=== PATIENT | male | born 1960 | race Caucasian/White ===

== ENCOUNTER 2017-01-06 13:14 | Inpatient (IN) | payer OTHER ==
[~2017-01-06] VITALS: Ht 152.4 cm; Wt 131.2 kg
[~2017-01-06 13:14] MED LIST: AMOXICILLIN/CL875 MG PO; ASPIRIN81 M1 PO; BENTYL20 MG PO; CARAFATE EQUIVAL1 GM PO; GABAPENTIN100 MG PO; HUMALOG100 MG/ML SC; IRON325 MG PO; LANTUS SOL100 UNITS/ SC; LISINOPRIL5 MG PO; LOTRIMIN30 GM TOP; METHADONE HCL5 MG PO; NEURONTIN300 MG PO; NOVOLOG PE100 UNITS/ SC; OXYCODONE H5 MG/5 ML PO; PLAVIX75 MG PO; TOPROL XL50 MG PO; TUSSIGON PO
--- NOTE | 2017-01-06 17:46 | ED NURSING NOTES ---
Clinical Report - Nurses [facility] [address] [place] [address] 01/06/2017 13:20 Patient: LETICIA EDWARDS TRIAGE Triage time 13:44 Jan 06 2017. Acuity: LEVEL 3. Chief Complaint: BACK PAIN (bedsore to left hip and testicle area). Alert. --13:54 Tania Greenwood R.N. 13:44 01/06/17. BP: 133/91. HR: 78. RR: 20. O2 saturation: 94%. Temp: 98.8 F. Pain level now: 06/26. --13:54 Tania Greenwood R.N. BRENTON COMA SCORE: Brenton Coma Scale: 14- eyes open spontaneously (4); best verbal response- disoriented (4); best motor response- obeys commands (6). --14:33 Tania Greenwood R.N. SEPSIS SCREEN: Sepsis Screen: negative. Infection suspected/documented. --14:34 Tania Greenwood R.N. Weight: 122.4 kg stated. Height/Length: 54 inches Estimated. BMI: 65.1. --13:54 Tania Greenwood R.N. Medications Dicyclomine HCl Oral 20 mg, 3x a day. Methadone HCl Oral 12.5mg 4x day. Methocarbamol Oral 750 mg, as needed. Metoprolol Tartrate Oral 50 mg, 3x day. Sucralfate Oral 1 gm, 4x a day. --13:46 Tania Greenwood R.N. Allergies Demerol. Morphine Sulfate. Sulfa Antibiotics. --13:46 Tania Greenwood R.N. History Arrived by EMS. Historian: automotive alignment specialist. This is a recurrent problem and onset was gradual. Symptoms still present. He has had weakness. Reports generalized muscle aches. ( confusion and hallucinations). No fever, cough or difficulty breathing. Treatment CHILD CARE SPECIALIST: None. PAST MEDICAL HX: Immunizations: up-to-date. SOCIAL HX: Heavy tobacco smoker (cigarette)- 1 pack per day. No alcohol use or drug use. No infectious disease exposure. SKIN INTEGRITY ASSESSMENT: Skin integrity risk assessment was performed. Risk factors identified include restricted mobility, non ambulatory, bedridden, complete positioning assistance, altered level of consciousness and incontinent. Pressure sore with damage down to muscle (Stage IV) noted on the left hip. SELF HARM ASSESSMENT: A self harm assessment was performed. The patient answered "no" to the question "Do you have thoughts of harming or killing yourself?". Bedside precautions. NUTRITIONAL RISK ASSESSMENT: The nutritional risk assessment revealed no deficiencies. LEARNING NEEDS ASSESSMENT: The learning needs assessment revealed no barriers. ABUSE ASSESSMENT: Abuse assessment: The patient was asked "Do you feel safe in your home?". FALL RISK ASSESSMENT: Fall risk assessment completed. Risk factors identified include severe pain and patient impairment of mobility. Fall interventions initiated. Call light in reach of patient. FUNCTIONAL ASSESSMENT: Functional assessment performed: requires total care with the activities of daily living; uses wheelchair and is bed-ridden- this mobility impairment is an ongoing problem. --13:54 Tania Greenwood R.N. PROBLEMS: CVA - Cerebrovascular Accident. TIA - Transient Ischemic Attack. Myocardial Infarction. Gangreen Forniers. Gastroesophageal Reflux Disease. Peripheral Neuropathy. Diabetes Mellitus. Pressure Ulcer. UTI - Urinary Tract Infection. Dysuria. Hypertension. Immunizations. Pneumonia. --13:47 Tania Greenwood R.N. ADDITIONAL SURGERIES: Amputation Above Knee. Cardiac stents. Cholecystectomy. Knee Surgery. Scrotal debridement. Shoulder Surgery. --13:47 Tania Greenwood R.N. Interventions ID and allergy band on patient. To room. --13:54 Tania Greenwood R.N. Protocol initiated. --14:33 Tania Greenwood R.N. PHYSICAL ASSESSMENT GENERAL / NEURO / PSYCH: Alert. Appears in pain. The patient is disoriented to time. HEENT: ( muc mem dry). RESPIRATORY: Respirations not labored. GI / : Abdominal tenderness. SKIN: Skin is warm. Skin breakdown noted on buttock and hip; pressure sore with damage down to muscle (Stage IV) noted on left buttock and left hip. --13:58 Tania Greenwood R.N. NURSING PROGRESS NOTES Patient gowned. Two patient identifiers checked. Call light placed in reach. Side rails up x 2. Bed placed in lowest position. Brakes of bed on. Patient ready for evaluation- chart flagged. --13:58 Tania Greenwood R.N. Finger stick glucose: 214 mg/dL; ordered; performed by tech; result shown to the RN. --14:20 Eric, Minerva 14:20 01/06/2017 IV NS : initial bolus none -, then 1000 mL/hr for X1 (NOW) was refused by patient because of wants a PICC line. Tania Greenwood --14:20 Tania Greenwood R.N. 14:20 01/06/17. ( pt refused IV start states that he wants a PICC line. Called lab and they will come draw labs.). --14:28 Tania Greenwood R.N. 14:45 01/06/2017 Site #1 started via IV in the right hand with an 20g angiocath; one attempt. Blood drawn: cultures x1. Saline lock flushed. --14:50 Tania Greenwood R.N. 14:50 01/06/2017 Site #1 removed. Catheter intact. Pressure dressing applied (infiltrated). --14:50 Tania Greenwood R.N. Patient identifiers checked. Call light placed in reach. Side rails up x 2. Bed placed in lowest position. Brakes of bed on. --14:51 Tania Greenwood R.N. ( patient states that he needs a break and will call when he is ready for IV.). --14:51 Tania Greenwood R.N. ( called respiratory for PICC). --14:55 Tania Greenwood R.N. 15:37 01/06/2017 Site #2 started via IV using a PICC line in the right with an 20g angiocath (inserted by RT). --15:42 Tania Greenwood R.N. 15:43 01/06/2017 Started bag #1 1000 mL IV Fluids IV NS (Saline); at 1000 mL/hr over 1 hour(s) via site #2. Allergies verified and confirmed 5 rights. IV patency established. IV site checked: no pain, redness, or swelling. IV flushed thoroughly pre- and post-medication administration. --15:43 Tania Greenwood R.N. Urinary catheter. (plugged pts cath to obtain urine sample). --15:44 Tania Greenwood R.N. 15:58 01/06/2017 Dilaudid (HYDROmorphone HCl PF) IVP 1 mg given over 2 minute(s) via site #2. --16:03 Tania Greenwood R.N. 16:01 01/06/2017 Zofran (Ondansetron HCl) IVP 4 mg given over 2 minute(s) via site #2. Allergies verified and confirmed 5 rights. IV patency established. IV site checked: no pain, redness, or swelling. IV flushed thoroughly pre- and post-medication administration. --16:04 Tania Greenwood R.N. Patient ID band checked for patient name and birthdate: patient confirmed urine collected with return of ricardo-colored cloudy urine, sediment noted; odor is foul-smelling; sample sent to lab for urinalysis and culture. Specimen labeled in the presence of the patient. --16:05 Tania Greenwood R.N. 16:35 01/06/2017 Acetaminophen (APAP) PO 1000 mg given. Allergies verified and confirmed 5 rights. --16:35 Tania Greenwood R.N. 16:37 01/06/2017 Dilaudid IVP Response: symptoms are the same. The patient feels the same. --16:37 Tania Greenwood R.N. 16:38 01/06/2017 Started bag #1 1000 mL IV Fluids IV NS (Saline); at 1000 mL/hr over 1 hour(s) via site #2 via IV pump. Allergies verified and confirmed 5 rights. IV patency established. IV site checked: no pain, redness, or swelling. IV flushed thoroughly pre- and post-medication administration. --16:38 Tania Greenwood R.N. 16:38 01/06/2017 IV Fluids IV NS Discontinued: bag #1 infused. Total amount infused: 1000 mL. IV patency established. IV site checked: no pain, redness, or swelling. IV flushed thoroughly. --16:38 Tania Greenwood R.N. 16:29 01/06/17. BP: 104/47. HR: 79. RR: 12. O2 saturation: 80%. Temp: 101.5 F. Pain level now 06/26. --16:39 Tania Greenwood R.N. 16:29 16:40 Jan 06 2017 Jan 06 2017. ED physician notified. ( notified MD of change in vital signs.). --16:40 Tania Greenwood R.N. 16:41 01/06/17. BP: 120/57. HR: 102. O2 saturation: 98%. --16:42 Tania Greenwood R.N. ( H&P form given to patients caregiver to help fill out.). --17:29 Minerva Reyes 17:30 01/06/17. BP: 120/53. HR: 97. RR: 16. O2 saturation: 98%. Temp: 100.5 F. Pain level now: 05/26. --17:31 Tania Greenwood R.N. 17:07 01/06/2017 Started 4.5 gm of Zosyn (Piperacillin Sod-Tazobactam So) IVPB in bag #1 200 mL; at 200 mL/hr over 1 hour(s) via site #2 via IV pump. Allergies verified and confirmed 5 rights. IV patency established. IV site checked: no pain, redness, or swelling. IV flushed thoroughly pre- and post-medication administration. --17:32 Tania Greenwood R.N. 17:40 01/06/2017 IV Fluids IV NS Discontinued: bag #2 infused. Total amount infused: 1000 mL. --17:40 Tania Greenwood R.N. 17:43 01/06/2017 Started bag #1 1000 mL IV Fluids IV NS (Saline); at 1000 mL/hr over 1 hour(s) via site #2 via IV pump. Allergies verified and confirmed 5 rights. IV patency established. IV site checked: no pain, redness, or swelling. IV flushed thoroughly pre- and post-medication administration. --17:43 Tania Greenwood R.N. 18:03 01/06/2017 Potassium Chloride (Potassium Chloride ER) PO 40 meq given. Allergies verified and confirmed 5 rights. --18:03 Tania Greenwood R.N. 17:58 01/06/17. BP: 113/64. HR: 94. RR: 16. O2 saturation: 96% on nasal cannula at 2 liters/minute. --18:06 Tania Greenwood R.N. Care transferred and report given ([employer] on floor). --18:07 Tania Greenwood R.N. DISPOSITION / DISCHARGE Departure time: 18:Jan 06 2017. Admitted to Acute Care (18:Jan 06 2017). Report was given to a nurse via a phone call. Report included patient's care, treatment, medications, reviewed medication reconcilliation, and condition (including any recent changes or anticipated changes). All questions were answered. Report was acknowledged. Patient's personal items include: glasses; items were transported with the patient. --18:21 Tania Greenwood R.N. Locked/Released at 01/06/2017 18:22 by Tania Greenwood R.N.
--- NOTE | 2017-01-06 17:46 | ED ORDER SUMMARY ---
..... Patient: LETICIA EDWARDS OrderSheet [facility] VisitID: [id number] [place] [address] 56y, M Registration Date/Time: 01/06/2017 ORDER SHEET Weight: 122.4 kg (stated) Allergies: Demerol, Morphine Sulfate, Sulfa Antibiotics GENERAL ORDERS: Blood Culture (No) (N/A) Urgent (13:51 01/06/2017 Emerita Chance) (Ack 13:54 Thuy) (15:17 KKnebel R.N.) CBC w Diff Urgent (13:52 01/06/2017 Emerita Chance) (Ack 13:53 Thuy) (15:17 KKnebel R.N.) CMP Urgent (13:52 01/06/2017 Emerita Chance) (Ack 13:53 Thuy) (15:17 KKnebel R.N.) UA-Culture if indicated Urgent (13:52 01/06/2017 Emerita Chance) (Ack 13:53 Thuy) (16:04 KKnebel R.N.) CPK Urgent (13:52 01/06/2017 Emerita Chance) (Ack 13:54 Thuy) (15:17 KKnebel R.N.) Acetone, Serum Urgent (13:52 01/06/2017 Emerita Chance) (Ack 13:54 Thuy) (15:17 KKnebel R.N.) Lactic Acid for Sepsis Protocol Urgent (13:52 01/06/2017 Emerita Chance) (Ack 13:54 Thuy) (15:17 KKnebel R.N.) PCT (Procalcitonin) Urgent (13:52 01/06/2017 Emerita Chance) (Ack 13:54 Thuy) (15:17 KKnebel R.N.) MEDICATION ORDERS: Acetaminophen PO 1,000 mg (NOW) (16:33 01/06/2017 Emerita Chance) (16:35 KKnebel R.N.) Potassium Chloride PO 40 meq (NOW) (16:36 01/06/2017 Emerita Chance) (Ack 16:46 KKnebel R.N.) (18:03 Dom R.N.) IV FLUIDS: IV NS : initial bolus none -, then 1000 mL/hr for X1 (NOW) (13:51 01/06/2017 Emerita Chance) (14:20 Dom R.N.) Dilaudid IV 1 mg (HIGH ALERT MEDICATION, NOW) (15:47 01/06/2017 Emerita Chance) (16:03 Dom R.N.) Zofran IV 4 mg (NOW) (15:47 01/06/2017 Emerita Chance) (16:04 Dom R.N.) IV NS : initial bolus 1000 mL (1000 mL/hr), then 1000 mL/hr for X1 (NOW) (16:31 01/06/2017 Emerita Chance) (16:38 Dom R.N.) Vancomycin IV 1.5 gm/500 mL (NOW) (16:34 01/06/2017 Emerita Chance) (Ack 16:46 Dom R.N.) Zosyn IV 4.5 gm/100mL (NOW) (16:34 01/06/2017 Emerita Chance) (Ack 16:46 KOREYnecait R.N.) (17:32 Dom R.N.) ORDER SHEET NOTES: [Electronically signed by Tania Greenwood R.N. (18:22 01/06/2017)] [Electronically signed by Mihir Hill Dr. (21:46 01/06/2017)] [Electronically locked/signed by Tania Greenwood R.N. (18:22 01/06/2017)]
--- NOTE | 2017-01-06 17:46 | ED ORDER SUMMARY ---
..... Patient: LETICIA EDWARDS OrderSheet [facility] VisitID: [id number] [place] [address] 56y, M Registration Date/Time: 01/06/2017 ORDER SHEET Weight: 122.4 kg (stated) Allergies: Demerol, Morphine Sulfate, Sulfa Antibiotics GENERAL ORDERS: Blood Culture (No) (N/A) Urgent (13:51 01/06/2017 Emerita Chance) (Ack 13:54 Thuy) (15:17 KKnebel R.N.) CBC w Diff Urgent (13:52 01/06/2017 Emerita Chance) (Ack 13:53 Thuy) (15:17 KKnebel R.N.) CMP Urgent (13:52 01/06/2017 Emerita Chance) (Ack 13:53 Thuy) (15:17 KKnebel R.N.) UA-Culture if indicated Urgent (13:52 01/06/2017 Emerita Chance) (Ack 13:53 Thuy) (16:04 KKnebel R.N.) CPK Urgent (13:52 01/06/2017 Emerita Chance) (Ack 13:54 Thuy) (15:17 KKnebel R.N.) Acetone, Serum Urgent (13:52 01/06/2017 Emerita Chance) (Ack 13:54 Thuy) (15:17 KKnebel R.N.) Lactic Acid for Sepsis Protocol Urgent (13:52 01/06/2017 Emerita Chance) (Ack 13:54 Thuy) (15:17 KKnebel R.N.) PCT (Procalcitonin) Urgent (13:52 01/06/2017 Emerita Chance) (Ack 13:54 Thuy) (15:17 KKnebel R.N.) MEDICATION ORDERS: Acetaminophen PO 1,000 mg (NOW) (16:33 01/06/2017 Emerita Chance) (16:35 KKnebel R.N.) Potassium Chloride PO 40 meq (NOW) (16:36 01/06/2017 Emerita Chance) (Ack 16:46 KKnebel R.N.) (18:03 Dom R.N.) IV FLUIDS: IV NS : initial bolus none -, then 1000 mL/hr for X1 (NOW) (13:51 01/06/2017 Emerita Chance) (14:20 Dom R.N.) Dilaudid IV 1 mg (HIGH ALERT MEDICATION, NOW) (15:47 01/06/2017 Emerita Chance) (16:03 Dom R.N.) Zofran IV 4 mg (NOW) (15:47 01/06/2017 Emerita Chance) (16:04 Dom R.N.) IV NS : initial bolus 1000 mL (1000 mL/hr), then 1000 mL/hr for X1 (NOW) (16:31 01/06/2017 Emerita Chance) (16:38 Dom R.N.) Vancomycin IV 1.5 gm/500 mL (NOW) (16:34 01/06/2017 Emerita Chance) (Ack 16:46 Dom R.N.) Zosyn IV 4.5 gm/100mL (NOW) (16:34 01/06/2017 Emerita Chance) (Ack 16:46 KOREYnecait R.N.) (17:32 Dom R.N.) ORDER SHEET NOTES: [Electronically signed by Tania Greenwood R.N. (18:22 01/06/2017)] [Electronically signed by Mihir Hill Dr. (21:46 01/06/2017)] [Electronically locked/signed by Tania Greenwood R.N. (18:22 01/06/2017)]
--- NOTE | 2017-01-06 17:46 | ED CLINICAL REPORT ---
Clinical Report - Physicians/Mid Levels [facility] [address] [place] [address] 01/06/2017 13:20 Patient: LETICIA EDWARDS Time Seen: 13:29; initial patient contact. Arrived- By ambulance. Historian- patient. HISTORY OF PRESENT ILLNESS Chief Complaint: LESION. This started several weeks ago and is still present (worse). It was gradual in onset. It is described as painful. It has been located on the left buttock. A cause has been identified (sacral stage 4 decubitus ulcers). No recent medication. (Has been in his wheelchair for 7 straight days w/out moving.). Similar symptoms previously: None. Recent medical care: Not recently seen/assessed. REVIEW OF SYSTEMS No fever, chills, difficulty breathing, abdominal pain or diarrhea. No difficulty with urination or vomiting. He has had nausea, fatigue, back pain and altered mental status. All systems otherwise negative, except as recorded above. PAST HISTORY CVA - Cerebrovascular Accident. TIA - Transient Ischemic Attack. Myocardial Infarction. Gangreen Forniers. Gastroesophageal Reflux Disease. Peripheral Neuropathy. Diabetes Mellitus. Pressure Ulcer. Hypertension. Surgeries: Cardiac stents. Cholecystectomy. Knee Surgery. Scrotal debridement. Shoulder Surgery. SOCIAL HISTORY Smoker - current status unknown. Alcohol use. Patient is a recovering alcoholic. No drug use. ADDITIONAL NOTES The nursing notes have been reviewed. PHYSICAL EXAM Vital Signs: 01/06/2017 13:44 BP: 133/91. HR: 78. RR: 20. O2 saturation: 94%. Temp: 98.8 F. Pain level now: 9/10. Have been reviewed. Hypertensive. Heart rate normal. Respiratory rate normal. Temperature normal. Oxygen saturation low. Appearance: Alert. Oriented X3. Appears to be in pain. Patient in mild distress. ENT: Dry mucous membranes present. Neck: Neck supple. CVS: Normal heart rate and rhythm. Heart sounds normal. Respiratory: No respiratory distress. Breath sounds normal. Abdomen: Nontender. No organomegaly. Skin: Deep sacral pressure ulcer with redness, necrosis and bone visible. Extremities: Extremity tenderness. Bilateral above the knee amputations. (bilateral AKA's). Neuro: Oriented X 3. LABS, X-RAYS, AND EKG Laboratory Tests: UA-Culture if indicated: (JAYLON: 01/06/2017 15:55) ( [facility] [place] 16:22) Final results Test Result Flag Units (Reference) URINE COLOR YELLOW URINE APPEARANCE CLOUDY URINE GLUCOSE TRACE (NEGATIVE) URINE BILIRUBIN NEGATIVE (NEGATIVE) URINE KETONE NEGATIVE (NEGATIVE) URINE SPECIFIC GRAVITY 1.020 (1.010-1.030) URINE PH 7.5 (5.0-8.0) URINE PROTEIN 3+ (NEGATIVE) URINE UROBILINOGEN 1.0 EU/dL (0.2-1.0) URINE NITRITE POSITIVE (NEGATIVE) URINE BLOOD 3+ (NEGATIVE) URINE LEUK ESTERASE POSITIVE (NEGATIVE) URINE RBC 3-5 rbc/hpf (0-1) TRIPLE PHOSPHATE CRYSTALS 5-15/HPF URINE WBC 5-10 wbc/hpf (0-1) URINE EPITHELIAL CELLS NONE SEEN EPI/hpf (0-5) URINE BACTERIA MANY (4+) (NONE SEEN) URINE COMMENT CULTURE INDICATED URINE CULTURES ARE SET-UP BASED ON THE FOLLOWING CRITERIA:POSITIVE NITRITEPOSITIVE LEUKOCYTE ESTERASEGREATER THAN 10 WHITE BLOOD CELLSMODERATE (2+) OR GREATER BACTERIA CBC w Diff: (JAYLON: 01/06/2017 14:30) ( [facility] 01/06/2017 15:02) Final results Test Result Flag Units (Reference) WHITE BLOOD COUNT 13.9 H K/uL (4.5-11.5) RED BLOOD COUNT 4.00 L M/uL (4.50-5.90) HEMOGLOBIN 9.9 L gm/dL (13.5-17.5) HEMATOCRIT 32.1 L % (41.0-53.0) MEAN CELL VOLUME 80 fL (80-100) MEAN CORPUSCULAR HGB 25 L pg (26-34) MEAN CORPUSCULAR HGB CONC 31 g/dL (31-37) RED CELL DISTRIBUTION WIDTH 15.6 H % (11.6-14.8) PLATELET COUNT 362 K/uL (150-400) LYMPH % 12.2 L % (25-40) MONO % 4.9 % (3-14) GRANULOCYTE % 82.9 [id number]: (JAYLON: 01/06/2017 14:30) ( MsgRcvd 01/06/2017 15:41) Final results Test Result Flag Units (Reference) PROCALCITONIN <0.5 ng/mL (0-0.5) PCT Concentration: Interpretation : Risk/option for action PCT <=0.5 ng/mL : Systemic : Low risk forinfection(sepsis): progression to severeis not likely. : systemic infection.Local bacterial : CAUTION-PCT levelsinfection is : below 0.5 ng/mL do notpossible. : exclude an infection,because localizedinfections (withoutsystemic signs) may beassociated with suchlow levels. If PCT ismeasured very earlyafter a bacterialchallenge (usually <6hours), these valuesmay still be low. Inthis case PCT shouldbe re-assessed 6-24hours later. PCT >0.5 and : Systemic infection: Moderate risk for<= 2 ng/mL : (sepsis) is : progression to severepossible, but : systemic infection.other conditions : The patient should beare known to : closely monitoredelevate PCT. : both clinically andby re-assessing PCTwithin 6-24 hours. PCT > 2 ng/mL : Systemic infection: High risk for(sepsis) is likely: progression to severeunless other : systemic infection.causes are known. : PCT >= 10 ng/mL : Important systemic: High likelihood ofinflammatory : severe sepsis orresponse, almost : septic shock.exclusively due to:severe bacterial :sepsis or septic :shock. : CMP: (JAYLON: 01/06/2017 14:30) ( MsgRcvd 01/06/2017 15:45) Final results Test Result Flag Units (Reference) GLUCOSE 192 H mg/dL (70-110) BUN 16 mg/dL (7-18) CREATININE 1.2 mg/dL (0.6-1.3) Estimated GFR >60 mL/min Estimated GFR- >60 mL/min Note: Persistent reduction over 3 months in eGFR<60 mL/min/1.73 m2 defines CKD. Patients with eGFR values>=60 mL/min/1.73 m2 may also have CKD if evidence ofpersistent proteinuria. Additional information may be foundat www.kidney.org. SODIUM 142 mmol/L (136-145) POTASSIUM 3.1 L mmol/L (3.5-5.1) CHLORIDE 102 mmol/L (98-107) CARBON DIOXIDE 31 mmol/L (21-32) CALCIUM 7.9 L mg/dL (8.5-10.1) TOTAL PROTEIN 7.0 g/dL (6.4-8.2) ALBUMIN 1.2 L g/dL (3.3-5.0) BILIRUBIN, TOTAL 0.3 mg/dL (0.0-1.0) ALKALINE PHOSPHATASE 157 H U/L (46-116) AST (SGOT) 18 U/L (15-37) ALT (SGPT) 17 U/L (12-78) CPK 57 U/L (24-260) ACETONE, SERUM QUALITATIVE NEGATIVE (NEGATIVE) LACTIC ACID SEPSIS PROTOCOL 2.1 H mmol/L (0.4-2.0) . PROGRESS AND PROCEDURES Discussed case with patient's primary care provider, (call placed 16:53 Dr. Hays). Disposition: Admitted to Acute Care. Stage 4 pressure ulcer present prior to admission. Admit decision based on need for observation, IV antibiotics and medications and stabilization of condition. CLINICAL IMPRESSION Acute urinary tract infection with cystitis associated with indwelling catheter. Sepsis. No shock or acute organ dysfunction. Stage 4 pressure ulcer with exposed muscle, tendon and bone on the sacral area. Cellulitis present. Hypokalemia. INSTRUCTIONS Follow-up: Blood pressure screening was not performed during this visit because the patient has an active diagnosis of hypertension. (Electronically signed by Mihir Hill Dr. 01/06/2017 21:46)
[2017-01-06 19:22] VITALS: BP 87/47
--- NOTE | 2017-01-06 21:46 | ED MAR SUMMARY ---
..... Medication Administration Record [facility] [address] [place] [address] Patient: LETICIA EDWARDS Visit ID: [id number] 56y, M Weight: 122.4 kg Height/Length: 54 in BMI: 65.1 ALLERGIES: Demerol, Morphine Sulfate, Sulfa Antibiotics Start 15:43 01/06/2017 Tania Greenwood R.N., Stop 16:38 01/06/2017 Tania Greenwood R.N. Medication Administered: IV NS (SALINE), Dose: IV Fluids over 1 hour(s), Rate: 1000 mL/hr, Dispensed: 1000 mL bag, Site: #2 right PICC. Medication Ordered: IV NS : initial bolus none -, then 1000 mL/hr for X1 (NOW). Given 15:58 01/06/2017 Tania Greenwood R.N. Medication Administered: DILAUDID [IVP] (HYDROMORPHONE HCL PF), Dose: 1 mg IVP over 2 minute(s), Site: #2 right PICC. Medication Ordered: Dilaudid IV 1 mg (HIGH ALERT MEDICATION, NOW). Given 16:01 01/06/2017 Tania Greenwood R.N. Medication Administered: ZOFRAN [IVP] (ONDANSETRON HCL), Dose: 4 mg IVP over 2 minute(s), Site: #2 right PICC. Medication Ordered: Zofran IV 4 mg (NOW). Given 16:35 01/06/2017 Tania Greenwood R.N. Medication Administered: ACETAMINOPHEN [PO] (APAP), Dose: 1000 mg PO. Medication Ordered: Acetaminophen PO 1,000 mg (NOW). Start 16:38 01/06/2017 Tania Gerenwood R.N., Stop 17:40 01/06/2017 Tania Greenwood R.N. Medication Administered: IV NS (SALINE), Dose: IV Fluids over 1 hour(s), Rate: 1000 mL/hr, Dispensed: 1000 mL bag, Site: #2 right PICC. Medication Ordered: IV NS : initial bolus 1000 mL (1000 mL/hr), then 1000 mL/hr for X1 (NOW). Start 17:07 01/06/2017 Tania Greenwood R.N. Medication Administered: ZOSYN [IVPB] (PIPERACILLIN SOD-TAZOBACTAM SO), Dose: 4.5 gm IVPB over 1 hour(s), Rate: 200 mL/hr, Dispensed: 200 mL bag, Site: #2 right PICC. Medication Ordered: Zosyn IV 4.5 gm/100mL (NOW). Start 17:43 01/06/2017 Tania Greenwood R.N. Medication Administered: IV NS (SALINE), Dose: IV Fluids over 1 hour(s), Rate: 1000 mL/hr, Dispensed: 1000 mL bag, Site: #2 right PICC. Medication Ordered: IV NS : initial bolus 1000 mL (1000 mL/hr), then 1000 mL/hr for X1 (NOW). Given 18:03 01/06/2017 Tania Greenwood R.N. Medication Administered: POTASSIUM CHLORIDE [PO] (POTASSIUM CHLORIDE ER), Dose: 40 meq PO. Medication Ordered: Potassium Chloride PO 40 meq (NOW).
--- NOTE | 2017-01-06 21:46 | ED MED RECONCILIATION SUMMARY ---
Patient: LETICIA EDWARDS Medication Reconciliation Report [facility] VisitID: [id number] [address] [place] [address] 56y, M Registration Date/Time: 01/06/2017 Weight: 122.4 kg Height/Length: 54 in. BMI: 65.1 ALLERGIES: Demerol, Morphine Sulfate, Sulfa Antibiotics The patient's Home Medications are listed below: THE FOLLOWING MEDICATIONS NEED TO BE RECONCILED: Dicyclomine HCl Oral 20 mg, 3x a day Methadone HCl Oral 12.5mg 4x day Methocarbamol Oral 750 mg Metoprolol Tartrate Oral 50 mg, 3x day Sucralfate Oral 1 gm, 4x a day The source(s) of the original Home Medication information: Not obtained. The following Medications were given to the patient in the Emergency Department: IV NS IV Fluids bolus 0, then 1000 mL/hr, administered: 01/06/2017 3:43:00 PM Dilaudid [IVP] IVP 1 mg, administered: 01/06/2017 3:58:00 PM Zofran [IVP] IVP 4 mg, administered: 01/06/2017 4:01:00 PM Acetaminophen [PO] PO 1000 mg, administered: 01/06/2017 4:35:00 PM IV NS IV Fluids bolus 0, then 1000 mL/hr, administered: 01/06/2017 4:38:00 PM Zosyn [IVPB] IVPB bolus 0, then 4.5 gm 200 mL/hr, administered: 01/06/2017 5:07:00 PM IV NS IV Fluids bolus 0, then 1000 mL/hr, administered: 01/06/2017 5:43:00 PM Potassium Chloride [PO] PO 40 meq, administered: 01/06/2017 6:03:00 PM The following Medications were prescribed to the patient: None.
--- NOTE | 2017-01-06 21:46 | ED DISCHARGE INSTRUCTIONS ---
Patient: LETICIA EDWARDS General Instructions [facility] VisitID: [id number] [address] [place] [address] 56y, M Registration Date/Time: 01/06/2017 Acute urinary tract infection with cystitis associated with indwelling catheter. Sepsis. No shock or acute organ dysfunction. Stage 4 pressure ulcer with exposed muscle, tendon and bone on the sacral area. Cellulitis present. Hypokalemia. INSTRUCTIONS Follow-up: Blood pressure screening was not performed during this visit because the patient has an active diagnosis of hypertension. (Electronically signed by Mihir Hill Dr. 01/06/2017 21:46)
--- NOTE | 2017-01-06 21:46 | ED MED RECONCILIATION SUMMARY ---
Patient: LETICIA EDWARDS Medication Reconciliation Report [facility] VisitID: [id number] [address] [place] [address] 56y, M Registration Date/Time: 01/06/2017 Weight: 122.4 kg Height/Length: 54 in. BMI: 65.1 ALLERGIES: Demerol, Morphine Sulfate, Sulfa Antibiotics The patient's Home Medications are listed below: THE FOLLOWING MEDICATIONS NEED TO BE RECONCILED: Dicyclomine HCl Oral 20 mg, 3x a day Methadone HCl Oral 12.5mg 4x day Methocarbamol Oral 750 mg Metoprolol Tartrate Oral 50 mg, 3x day Sucralfate Oral 1 gm, 4x a day The source(s) of the original Home Medication information: Not obtained. The following Medications were given to the patient in the Emergency Department: IV NS IV Fluids bolus 0, then 1000 mL/hr, administered: 01/06/2017 3:43:00 PM Dilaudid [IVP] IVP 1 mg, administered: 01/06/2017 3:58:00 PM Zofran [IVP] IVP 4 mg, administered: 01/06/2017 4:01:00 PM Acetaminophen [PO] PO 1000 mg, administered: 01/06/2017 4:35:00 PM IV NS IV Fluids bolus 0, then 1000 mL/hr, administered: 01/06/2017 4:38:00 PM Zosyn [IVPB] IVPB bolus 0, then 4.5 gm 200 mL/hr, administered: 01/06/2017 5:07:00 PM IV NS IV Fluids bolus 0, then 1000 mL/hr, administered: 01/06/2017 5:43:00 PM Potassium Chloride [PO] PO 40 meq, administered: 01/06/2017 6:03:00 PM The following Medications were prescribed to the patient: None.
--- NOTE | 2017-01-06 21:46 | ED MAR SUMMARY ---
..... Medication Administration Record [facility] [address] [place] [address] Patient: LETICIA EDWARDS Visit ID: [id number] 56y, M Weight: 122.4 kg Height/Length: 54 in BMI: 65.1 ALLERGIES: Demerol, Morphine Sulfate, Sulfa Antibiotics Start 15:43 01/06/2017 Tania Greenwood R.N., Stop 16:38 01/06/2017 Tania Greenwood R.N. Medication Administered: IV NS (SALINE), Dose: IV Fluids over 1 hour(s), Rate: 1000 mL/hr, Dispensed: 1000 mL bag, Site: #2 right PICC. Medication Ordered: IV NS : initial bolus none -, then 1000 mL/hr for X1 (NOW). Given 15:58 01/06/2017 Tania Greenwood R.N. Medication Administered: DILAUDID [IVP] (HYDROMORPHONE HCL PF), Dose: 1 mg IVP over 2 minute(s), Site: #2 right PICC. Medication Ordered: Dilaudid IV 1 mg (HIGH ALERT MEDICATION, NOW). Given 16:01 01/06/2017 Tania Greenwood R.N. Medication Administered: ZOFRAN [IVP] (ONDANSETRON HCL), Dose: 4 mg IVP over 2 minute(s), Site: #2 right PICC. Medication Ordered: Zofran IV 4 mg (NOW). Given 16:35 01/06/2017 Tania Greenwood R.N. Medication Administered: ACETAMINOPHEN [PO] (APAP), Dose: 1000 mg PO. Medication Ordered: Acetaminophen PO 1,000 mg (NOW). Start 16:38 01/06/2017 Tania Greenwood R.N., Stop 17:40 01/06/2017 Tania Greenwood R.N. Medication Administered: IV NS (SALINE), Dose: IV Fluids over 1 hour(s), Rate: 1000 mL/hr, Dispensed: 1000 mL bag, Site: #2 right PICC. Medication Ordered: IV NS : initial bolus 1000 mL (1000 mL/hr), then 1000 mL/hr for X1 (NOW). Start 17:07 01/06/2017 Tania Greenwood R.N. Medication Administered: ZOSYN [IVPB] (PIPERACILLIN SOD-TAZOBACTAM SO), Dose: 4.5 gm IVPB over 1 hour(s), Rate: 200 mL/hr, Dispensed: 200 mL bag, Site: #2 right PICC. Medication Ordered: Zosyn IV 4.5 gm/100mL (NOW). Start 17:43 01/06/2017 Tania Greenwood R.N. Medication Administered: IV NS (SALINE), Dose: IV Fluids over 1 hour(s), Rate: 1000 mL/hr, Dispensed: 1000 mL bag, Site: #2 right PICC. Medication Ordered: IV NS : initial bolus 1000 mL (1000 mL/hr), then 1000 mL/hr for X1 (NOW). Given 18:03 01/06/2017 Tania Greenwood R.N. Medication Administered: POTASSIUM CHLORIDE [PO] (POTASSIUM CHLORIDE ER), Dose: 40 meq PO. Medication Ordered: Potassium Chloride PO 40 meq (NOW).
--- NOTE | 2017-01-06 21:46 | ED DISCHARGE INSTRUCTIONS ---
Patient: LETICIA EDWARDS General Instructions [facility] VisitID: [id number] [address] [place] [address] 56y, M Registration Date/Time: 01/06/2017 Acute urinary tract infection with cystitis associated with indwelling catheter. Sepsis. No shock or acute organ dysfunction. Stage 4 pressure ulcer with exposed muscle, tendon and bone on the sacral area. Cellulitis present. Hypokalemia. INSTRUCTIONS Follow-up: Blood pressure screening was not performed during this visit because the patient has an active diagnosis of hypertension. (Electronically signed by Mihir Hill Dr. 01/06/2017 21:46)
[2017-01-06 23:19] VITALS: BP 84/48
[2017-01-06] MEDS ORDERED: METHADONE HCL5 MG PO (23:26)
[2017-01-06] MEDS ORDERED: LOPRESSOR50 MG PO (23:26)
[2017-01-06] MEDS ORDERED: OXAYDO5 MG PO (23:27)
[2017-01-06] MEDS ORDERED: MIRALAX EQUIVAL17 GM PO (23:28)
[2017-01-07] VITALS (10 sets, daily range): BP systolic 88–174; BP diastolic 47–96
--- NOTE | 2017-01-07 03:11 | HISTORY AND PHYSICAL ---
ADMITTED: 01/06/2017 CHIEF COMPLAINT: 1. Confusion, weakness, and decreased responsiveness with abdominal pain, left hip and buttock pain HISTORY OF PRESENT ILLNESS: The patient is a 56-year-old white male, who has had longstanding problems with diabetes and diabetic neuropathy and vascular disease , who also has been very noncompliant with his own care at home. He has recently had a left above-knee amputation in 09/2016 and had had a right above-knee amputation about a year and a half earlier. He was quite noncompliant following his discharge from the hospital and developed a large deep ulcer on the left hip area. He was not prompt about getting into the [facility]ound [facility] Clinic at [facility] to have this treated. He eventually was admitted to [facility] and had an extensive debridement done. Following this, he had a wound VAC placed and was supposed to follow up there. He returned home and basically has been in his power wheelchair since and has been refusing to get out. He has had numerous attempts by visiting nurses to coax him into getting into bed for assistance with wound care. He does have a lift device at home, which is available to use. He has simply not wanted to do this. He has refused to come into the emergency department, either here at [facility] or [facility] for evaluation when he has become worse with complaints of abdominal pain and episodes of confusion and weakness. Finally, he decided to allow himself to be transferred here to [facility] Emergency Department. He does continue to smoke when he is alert enough to do so. He does not drink alcohol. MEDICAL/SURGICAL HISTORY: Past medical history is remarkable for longstanding adult-onset diabetes as noted. This has been poorly controlled, although his control has been a little better recently due to the fact that he has not been eating very much. He also has longstanding hypertension, ASCVD with a history of myocardial infarction and coronary artery stent placements. He has had hyperlipidemia, but has not been compliant with taking statin medications. He continues to smoke. He has developed moderate COPD. 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 He has had a number of small CVAs and TIAs. He also has chronic lumbar pain due to facet joint arthritis and lumbar disk disease. At some point following his last hospitalization here, he sustained a fracture of the left femoral neck, though this does not seem to cause him a great deal of pain. Past surgical history includes cholecystectomy, right and left eye surgeries with removal of a pseudotumor from the right orbital area. He also had extensive perineal debridement due to the Lashawn gangrene and finally ended up having a right orchiectomy done at that time. He has had coronary artery angiograms x2 with stent placements each time. He has been fairly stable with his heart function over the last 5-6 years. He had a right lower extremity above-knee amputation done on 04/16/2015. He had a left above-knee amputation done 09/23/2016. He had an EGD done in 2010 without evidence of major abnormalities. He has been discharged from the Wound Care Center here at [facility] due to noncompliance with treatment and persistent smoking and virtually no motivation to try to control diabetes. MEDICATIONS: Current medications have included: 1. Metoprolol tartrate 50 mg alternating with 25 mg every 6 hours to control chest pain and blood pressure. 2. Dicyclomine 20 mg strength 1 or 2 tablets 4 times daily for abdominal pain and cramping. 3. Lantus insulin 60 units daily. 4. NovoLog or Humalog insulin 15-20 units before eating. 5. Gabapentin 300 mg 1 or 2 capsules 3 times daily to help with neuropathy pain. 6. Methadone 5 mg every 6 hours. 7. Oxycodone 10 mg one 4 times daily for breakthrough pain taken as needed. 8. Dexilant 60 mg daily for stomach acid control. 9. The patient also may have restarted lisinopril at 5 mg daily, which he has been prescribed in the past, but which he has usually not been taking. 10. He also has had a prescription for ondansetron 4 mg to use for nausea. 11. And a prescription for Sucralfate 1 g 4 times daily to help with stomach pain and irritation, though he has not been using this very frequently. ALLERGIES: INCLUDE: 1. SULFA DRUGS. 2. MORPHINE. 3. DEMEROL. 4. REGLAN. 5. TETRACYCLINE. SOCIAL HISTORY: Indicates the patient is currently . He is disabled. He lives in the [facility] apartments. He is wheelchair bound and uses a power wheelchair. He continues to smoke 1/2 to 1 pack of cigarettes per day. He had problems in the remote past with alcohol but has not had any alcoholic consumption for the past 30 years. FAMILY HISTORY: Remarkable for being raised by adoptive parents. He thinks his mother around age 60. He thinks she may have had problems with hypertension , diabetes, and heart disease. The patient has had no connection with his father. REVIEW OF SYSTEMS: HEENT: Remarkable for some markedly decreased vision due to retinal problems. Respiratory: Remarkable for some chest congestion and intermittent coughing. He occasionally has had some wheezing and does have an albuterol inhaler to use, though he rarely uses this. He does continue to smoke. Cardiovascular has been okay with no recent complaints of chest pain. Gastrointestinal is remarkable for complaints of right upper quadrant and mid abdominal pain over the last 2 weeks or so. He has had a very decreased appetite. Genitourinary is remarkable for difficulty with passing urine. He has had a Hyatt catheter in place since his discharge from [facility]. Musculoskeletal is remarkable for bilateral shoulder pain, particularly with abduction. He also has some chronic back pain and hip pain issues. Skin is remarkable for a deep ulcer over the left hip area. He also has an ischial ulcer, which is at least stage III. He has a small sore on the glans of his penis which may be due from pressure from the Hyatt catheter. Neurological is remarkable for some increased confusion and some episodes of hallucinations over the last several days and particularly today. PHYSICAL EXAMINATION: GENERAL: Reveals the patient to be a white male, who is morbidly obese. He apparently was alert and conversant earlier. He is currently markedly somnolent with difficulty being aroused to be coherent enough to answer any questions. He will answer with 1-word responses not necessarily related to the question. VITAL SIGNS: Currently, his temperature is 98. Pulse is in the 50s-80s. Respiratory rate is in the 12-16 range. Oxygen saturation is 94% to 95% on room air. HEENT: Head is normal. Ear canals show cerumen in both ear canals with only minimal portions of the tympanic membranes seen. Eyes show somewhat irregular pupil on the right. Fundi show no gross abnormalities. Nose and throat are clear. The patient has a number of broken-off teeth. NECK: Supple. Carotid pulses are normal with no distinct bruits. CHEST: Reveals bilateral rhonchi. There is no wheezing. HEART: Reveals a normal S1 and S2 with a grade 1/6 to 2/6 systolic murmur. There is an intermittent S3 and occasional trigeminy. ABDOMEN: Nondistended. There is no distinct tenderness currently. No distinct masses are felt, though this would be hard to discern. GENITALIA: Show a Hyatt catheter in place. Right testicle is atrophic. 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 RECTAL: Not done. BACK: Not examined due to the patient's marked obesity and difficulty with change of positions. This will be done in the morning when more nursing staff are present to help. EXTREMITIES: Show bilateral above-knee amputations. Amputation sites are well healed with no skin breakdown. NEUROLOGIC: Reveals the patient markedly somnolent and minimally responsive to voice and to pain. He does seem to have fairly asymmetrical movements. This condition may likely be due to pain medication he received after arrival on the floor. SKIN: Please see the pictures in the chart. He has a large stage IV ulcer over the left hip area and a stage III to IV ischial ulcer, and a small ulcer on the penis. LAB/IMAGING: Laboratory studies show white blood cell count to be 15,900, hemoglobin is 9.9, hematocrit is 32.1. Sodium 141, potassium 3.1, chloride 102, CO2 is 31, glucose is 192, creatinine 1.2, BUN 16. CPK is 57. Lactic acid is elevated at 2.1. Total bilirubin is 0.3. SGOT is 18, SGPT is 17, alkaline phosphatase is 157. Chest x-ray has not been done. EKG has not been done. Urinalysis shows 3+ protein, negative ketones, 4+ bacteria, and apparently only 5-10 white blood cells and rare red blood cells. IMPRESSION: 1. The patient is presenting with urinary tract infection and possible sepsis from this. 2. He also has had quite significant neglect of his care with minimal healing of the deep ulcer on the left hip following surgical debridement. 3. He has developed a new ischial ulcer. 4. He has underlying problems with adult-onset diabetes with complications of neuropathy and microvascular disease of the lower extremities. 5. Other problems include cerebrovascular disease with some transient ischemic attacks and small strokes in the past. 6. He also has coronary artery disease, which has been stable recently. 7. He has underlying [id number] chronic obstructive pulmonary disease with occasional bronchospasm. 8. Potassium level is low and has been addressed with administration of potassium in the emergency department. 9. He has also been started on vancomycin and Zosyn. PLAN: The patient is admitted and will continue with vancomycin and Zosyn pending the results of the cultures. Wound care nurse will be consulted to assist with wound care of the ischial and left hip wounds. He may need additional surgical debridement. For long-term care, it would be best for him to be in a alf facility as he is markedly obese and it is very difficult to care for him at home. His has significantly compromised functional abilities due to her own medical problems and her own morbid obesity and arthritis problems. reference services head will be asked to help assist with mcc placement if his is not going to be able to take him home to care for him.
--- NOTE | 2017-01-07 08:01 | DIAGNOSTIC IMAGING REPORT ---
PROCEDURE: XR CHEST 1 VIEW INDICATION: somnolence, cough, smoking hx--check for pneumonia TECHNIQUE: Single view chest. 05:30 hours COMPARISON: Multiple prior studies, most recent 09/27/2016 FINDINGS: Mild cardiomegaly. Slight patient rotation. Low lung volumes crowds the central bronchovascular markings. Mild cephalization of vasculature. Strandy bibasilar densities. Small right pleural effusion layering laterally, with fissural thickening. Intact osseous structures. IMPRESSION: 1. Bibasilar opacities may be atelectasis, infection, or edema. 2. Chronically prominent central vessels and mild cardiomegaly, consider CHF. 3. Small right effusion or pleural thickening, chronic. Lateral chest recommended when the patient is able.
--- NOTE | 2017-01-07 19:14 | OPERATIVE REPORT ---
DATE OF SURGERY: 01/06/2017 SURGEON: Darrick Neil III, MD GENERAL LEDGER ACCOUNTANT: None. PREOPERATIVE DIAGNOSIS: 1. Chronic open necrotic pressure ulcers, left hip and ischium POSTOPERATIVE DIAGNOSIS: 1. Chronic open necrotic pressure ulcers, left hip and ischium PROCEDURE PERFORMED: 1. Sharp debridement with bone curette and scalpel of necrotic skin, subcutaneous tissue and muscle down to ischium; hemorrhage controlled with electrocautery ANESTHESIA: TIVA. COMPLICATIONS: No intraoperative, anesthetic complications. INDICATIONS: The patient is a 56-year-old male, history of diabetes and diabetic neuropathy, vascular disease, noncompliant, who is status post bilateral lower extremity amputation, refusing all home care dressing changes by nursing staff, admitted with a diagnosis of urosepsis and on physical examination was noted to have chronic deep wounds secondary to pressure ulcers of his left hip and left ischium. SURGICAL FINDINGS: The patient had a chronic deep wound with exposed muscle and fibrinous exudate, left hip. The left ischium was also a very deep wound containing necrotic foul-smelling purulent tissue. SURGICAL TECHNIQUE: The patient brought to the operating room, was kept in his bed, placed in the right lateral decubitus position. He was administered TIVA. His left hip, buttock and perineum were prepped using Betadine. Our attention was turned to the left hip. This wound was easily curetted with a bone curette, removing the fibrinous exudate from the skin and the muscle down onto the ligamentous structures, which were debrided as well. The wound was then irrigated copiously with warm normal saline. Hemostasis achieved using electrocautery. The wound was packed using Betadine-soaked Kerlix gauze. Our attention was turned to the left ischial region where using a scalpel, we were able to excise the necrotic tissue from the skin, subcutaneous tissue, muscle, all the way down to the ischial tuberosity. All purulent material was excised along with the necrotic tissue. The wound was irrigated with warm normal saline, hemostasis achieved using electrocautery and then packed using Betadine-soaked Kerlix gauze. Pressure dressings were placed over each site. The patient tolerated procedure well, was transferred to the recovery room in stable condition.
[2017-01-08 03:17] VITALS: BP 143/68
[2017-01-08 06:32] VITALS: BP 174/87
[2017-01-08 10:29] VITALS: BP 173/98
[2017-01-08 14:31] VITALS: BP 152/89
[2017-01-08 19:09] VITALS: BP 169/84
[2017-01-08 22:51] VITALS: BP 160/85
[2017-01-09 05:26] VITALS: BP 177/86
[2017-01-09 10:13] VITALS: BP 168/84
[2017-01-09 15:13] VITALS: BP 152/81
[2017-01-09 18:46] VITALS: BP 145/83
[2017-01-09 22:20] VITALS: BP 141/53
[2017-01-10 03:11] VITALS: BP 134/62
[2017-01-10 06:28] VITALS: BP 151/71
[2017-01-10 10:42] VITALS: BP 132/67
[2017-01-10 14:15] VITALS: BP 149/76
[2017-01-10 19:06] VITALS: BP 160/72
[2017-01-11 02:11] VITALS: BP 130/56
[2017-01-11 05:36] VITALS: BP 156/66
[2017-01-11 10:49] VITALS: BP 144/78
[2017-01-11 14:38] VITALS: BP 146/81
[2017-01-11 18:12] VITALS: BP 138/75
[2017-01-11 21:40] VITALS: BP 152/81
[2017-01-12 02:33] VITALS: BP 155/72
[2017-01-12 06:11] VITALS: BP 179/81
--- NOTE | 2017-01-12 08:25 | Provider's Discharge Care Plan ---
Problem, Goal, Plan Problem List 1. Pressure ulcer of left hip, stage 4 Goals: Improve disease control, Improve function, Improved health/wellness, see dictation Instructions: see dictation 2. Pressure ulcer of ischial area, stage 4 Goals: Improve disease control, Improve function, Improved health/wellness, Increase independence, Improve nutrition status, see dictation Instructions: see dictation
--- NOTE | 2017-01-12 09:50 | DISCHARGE SUMMARY ---
ADMIT DATE: 01/06/2017 DISCHARGE DATE: 01/12/2017 ADMITTING DIAGNOSES: 1. Worsening pressure ulcers with secondary infection, stage IV, of the left hip and unknown depth of a new ischial ulcer on the left ischial/perineum area 2. Probable urinary tract infection, possible sepsis DISCHARGE DIAGNOSES: 1. Deep stage IV poorly healing pressure ulcer, left hip area 2. Deep stage IV pressure ulcer, new, in the left ischial area 3. Other problems include urinary tract infection with Proteus mirabilis and Morganella morganii 4. Sepsis with positive blood culture, growing Proteus mirabilis and Morganella morganii and peptostreptococcus species 5. Stage IV pressure ulcer of left hip area 6. Stage IV pressure ulcer, left ischial area 7. Other problems include transient renal insufficiency, improved with hydration 8. Adult-onset diabetes, in the past uncontrolled, but now well controlled on current regimen 9. Hypertension 10. Atherosclerotic cerebrovascular disease with hyperlipidemia 11. Chronic back pain due to degenerative disk problems in the lumbar area 12. 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 Chronic obstructive pulmonary disease with bronchospasm 14. History of cerebrovascular disease with small strokes and transient ischemic attacks in the past 15. Nicotine addiction 16. Also, the patient has tendency towards oppositional and defiant behavior if he is not having things go exactly the way he wants; this has led to difficulties with his hospitalizations, with refusals of care; he is accepting of more care, realizing that if he does not accept this care, he is likely to pass away. 17. Morbid obesity with above knee amputations, with this patient's body habitus making bed mobility and wound care extremely difficult and able to be managed only in the facility with staff trained and capable of managing such an individual. BRIEF HISTORY: Please see the dictated history and physical exam for details concerning admission. PROCEDURE: 1. The patient was taken to surgery on 01/07/[address] Neil and had deep debridement of the left hip ulcer and the ischial ulcer, with debridement extending down to bone in both areas HOSPITAL COURSE: The patient was admitted after he had been refusing care at home for about a week and a half to 2 weeks and had been refusing to get out of his power wheelchair due to pain issues. He finally consented to be brought in to [facility] emergency department. He was admitted with the diagnoses of possible sepsis, urinary tract infection, deep ulcers on the left hip and left ischial area, and underlying problems with diabetes, hypertension, and coronary artery disease and cerebrovascular disease. He was admitted to the intensive care unit and was initially treated with vancomycin and Zosyn. This was changed to vancomycin and meropenem. He did fairly well with these. He was taken to surgery on the second hospital day and his ulcers were debrided very nicely. He was then started on wound packing, with saline packs changed every 6 hours. This was decreased to changing every 8 hours. He has had problems with loose stools, causing quite a bit of soilage around the ischial ulcer, and the dressing in this area has been changed more frequently, after bowel movements. Due to the patient's body habitus and requirements of care, he was felt to be unable to be managed at home. He was felt to be unable to be managed adequately at most of nursing homes, and arrangements have been made to have him transferred to the [facility] for further management of these deep wounds, which will require dressing changes done regularly for the next several weeks. The patient's and he finally agreed that this would be the best course, and he has agreed to be compliant with this. The patient's cultures did grow out Proteus mirabilis and Morganella morganii from the urine, Proteus mirabilis from one blood culture and Morganella morganii and peptostreptococcus species from another blood culture. Once these reports were available, it was felt he would do well simply with meropenem, and he has been continued on meropenem. He has had gradual improvement in his white blood cell count, which was initially 19,000, and has come down to 11,000. He has had gradual improvement in kidney function, with a BUN 22 and creatinine 1.7 on admission, and this has come down to BUN 16 and creatinine of 1.3 as of 01/11/2017. His diabetes has been managed with using Lantus insulin at 15 units q.a.m. and an intermediate dose of sliding scale insulin. His pain has been managed with hydromorphone 2.5 mg p.o. every 6 hours and oxycodone 5 mg p.o. every hour for breakthrough pain, with occasional supplemental doses of hydromorphone 1 mg IV. He has not needed the hydromorphone too frequently. He has also been managed with ipratropium/albuterol by nebulizer q.8 hours, which seems to be keeping his breathing okay. DISCHARGE INSTRUCTIONS/MEDICATIONS: Disposition: The patient is transferred to [facility] in the [place] area. He will require continuing changing dressings on his wounds with saline moistened gauze packs, moistened and changed every 12 hours on the left hip area and at least every 8 hours and perhaps more frequently (due to stool soilage) on the ischial ulcer area. He may require additional surgical debridement. This will depend on how the wounds appear to be healing. He will need to continue with the meropenem antibiotic 1 g IV every 8 hours for at least another 8 days, for at least 2 weeks total of the antibiotic, though it may be appropriate to continue this longer. Other active medications for the patient will include continuation of Loperamide 4 mg 1-3 times daily if needed for diarrhea. Metoprolol tartrate 50 mg p.o. every 12 hours. Furosemide 20 mg p.o. or IV q.a.m. p.r.n. for fluid retention. He is taking p.o. fluids well and should not need IV fluids at this point, and IV will be hep-locked. He will also continue Lactobacillus 1 daily. Albuterol/ipratropium by nebulizer t.i.d. (q.8 h.) for bronchospasm and COPD. Pantoprazole 40 mg p.o. q.a.m. Amlodipine 5 mg p.o. every 12 hours for blood pressure control. Lisinopril 2.5 mg p.o. every 12 hours. Lantus insulin 15 units q.a.m. NovoLog insulin a.c. and at bedtime by intermediate sliding dose. Methadone 2.5 mg p.o. every 6 hours for pain control. Oxycodone 5 mg p.o. every 4 hours for breakthrough pain. Ondansetron 4 mg sublingually p.r.n. stomach upset and nausea. Nicotine patch 21 mg strength 1 daily. Please call me in my office if there are any questions.
[2017-01-12 10:46] VITALS: BP 142/63
[2017-01-12 15:30] VITALS: BP 133/66
[2017-01-12 18:51] VITALS: BP 150/53
[2017-01-12 20:49] VITALS: BP 147/59
[2017-01-13 05:22] VITALS: BP 178/89
[2017-01-13 06:33] VITALS: BP 180/85
[2017-01-13 10:18] VITALS: BP 154/66
[2017-01-13 14:26] VITALS: BP 185/85
--- NOTE | 2017-01-13 14:31 | Progress Note ---
Subjective General Mr. Quintanilla is a 56 year old man with diabetes, neuropathy, morbid obesity, cigarette dependancy and recurrent pressure ulcers from excessive sitting time. He is now being treated for stage 4 pressure ulcers of the left greater trochanter and ischial tuberosity. He underwent bilateral AK amputations during the last 2 years for sores and non ambulatory state. He currently is having recurrent feces contamination since he doesn't control his stool and the stool tends to get into his ischial tuberosity wound. Physical Exam Vital Signs / I&Os Vital Signs Date Time Temp Pulse Resp B/P Pulse O2 O2 Flow FiO2 Ox Delivery Rate 01/13 1018 98.1 81 18 154/66 95 Room Air 0.0 01/13 0800 Room Air 01/13 0633 97.9 83 22 180/85 91 Room Air 0.0 01/13 0522 98.8 92 18 178/89 87 Room Air 01/12 2049 98.8 88 16 147/59 91 Room Air 0.0 01/12 2038 Room Air 0.0 01/12 1851 99.0 91 22 150/53 92 Room Air 01/12 1610 0.0 01/12 1530 98.6 93 20 133/66 95 Room Air 0.0 I&O 01/12 0800 01/12 1600 01/13 0000 Intake Total 1738 2003 340 Output Total 450 955 275 Balance 1288 1048 65 General Appearance Alert, Oriented X3, Cooperative, centralized obesity. HEENT Atraumatic, PERRLA Abdomen Soft, large pannous Extremities there are two large pressure ulcers of the left ischial tuberosity and left greater trochanter with exposed bone of the ischium and tendon around the tensor fascia mikaela. There is little overt necrotic tissue except for tendon/fascia as well as the ischial tuberosity. He had stool when the dressings were removed. He has a huge abdomen. . Assessment and Plan Problem List 1. Pressure ulcer of ischial area, stage 4 2. Pressure ulcer of left hip, stage 4 Plan I urged Mr Quintanilla to consider a diverting colostomy (laparoscopic) to get stool away from the bone (osteomyelitis) and facilitate using a vac on both wounds. I asked for rongejohan at the bedside to debride the mealy bone and necrotic tendon. A vac and ad terminal makeup operator placement ([place]?) are in order but a third constitution party denial is being appealed. jail off loading, weight loss, diabetes management, and smoking cessation are still optimal goals.
--- NOTE | 2017-01-13 14:31 | Progress Note ---
Subjective General Mr. Quintanilla is a 56 year old man with diabetes, neuropathy, morbid obesity, cigarette dependancy and recurrent pressure ulcers from excessive sitting time. He is now being treated for stage 4 pressure ulcers of the left greater trochanter and ischial tuberosity. He underwent bilateral AK amputations during the last 2 years for sores and non ambulatory state. He currently is having recurrent feces contamination since he doesn't control his stool and the stool tends to get into his ischial tuberosity wound. Physical Exam Vital Signs / I&Os Vital Signs Date Time Temp Pulse Resp B/P Pulse O2 O2 Flow FiO2 Ox Delivery Rate 01/13 1018 98.1 81 18 154/66 95 Room Air 0.0 01/13 0800 Room Air 01/13 0633 97.9 83 22 180/85 91 Room Air 0.0 01/13 0522 98.8 92 18 178/89 87 Room Air 01/12 2049 98.8 88 16 147/59 91 Room Air 0.0 01/12 2038 Room Air 0.0 01/12 1851 99.0 91 22 150/53 92 Room Air 01/12 1610 0.0 01/12 1530 98.6 93 20 133/66 95 Room Air 0.0 I&O 01/12 0800 01/12 1600 01/13 0000 Intake Total 1738 2003 340 Output Total 450 955 275 Balance 1288 1048 65 General Appearance Alert, Oriented X3, Cooperative, centralized obesity. HEENT Atraumatic, PERRLA Abdomen Soft, large pannous Extremities there are two large pressure ulcers of the left ischial tuberosity and left greater trochanter with exposed bone of the ischium and tendon around the tensor fascia mikaela. There is little overt necrotic tissue except for tendon/fascia as well as the ischial tuberosity. He had stool when the dressings were removed. He has a huge abdomen. . Assessment and Plan Problem List 1. Pressure ulcer of ischial area, stage 4 2. Pressure ulcer of left hip, stage 4 Plan I urged Mr Quintanilla to consider a diverting colostomy (laparoscopic) to get stool away from the bone (osteomyelitis) and facilitate using a vac on both wounds. I asked for rongejohan at the bedside to debride the mealy bone and necrotic tendon. A vac and superintendent marine oil terminal placement ([place]ell?) are in order but a third green party denial is being appealed. [facility] off loading, weight loss, diabetes management, and smoking cessation are still optimal goals.
[2017-01-13 18:33] VITALS: BP 117/89
[2017-01-13 22:12] VITALS: BP 148/81
[2017-01-14 02:17] VITALS: BP 168/81
[2017-01-14 06:41] VITALS: BP 161/76
[2017-01-14 09:59] VITALS: BP 145/71
[2017-01-14 14:22] VITALS: BP 139/62
[2017-01-14 18:24] VITALS: BP 146/73
[2017-01-14 22:58] VITALS: BP 136/72
[2017-01-15 02:49] VITALS: BP 173/93; BP 185/93
[2017-01-15 06:24] VITALS: BP 133/76
[2017-01-15 11:07] VITALS: BP 157/79
[2017-01-15 14:14] VITALS: BP 143/63
[2017-01-15 18:06] VITALS: BP 146/68
[2017-01-15 22:22] VITALS: BP 148/91
[2017-01-16 03:33] VITALS: BP 140/73
[2017-01-16 06:39] VITALS: BP 144/76
[2017-01-16 11:43] VITALS: BP 156/71
[2017-01-16 14:27] VITALS: BP 138/69
[2017-01-16 18:25] VITALS: BP 169/95
[2017-01-16 22:34] VITALS: BP 159/90
[2017-01-17] VITALS (11 sets, daily range): BP systolic 119–178; BP diastolic 61–84
[2017-01-18] VITALS (7 sets, daily range): BP systolic 112–164; BP diastolic 49–73
--- NOTE | 2017-01-18 02:38 | OPERATIVE REPORT ---
DATE OF SURGERY: 01/17/2017 SURGEON: Margarito Ricketts MD PREOPERATIVE DIAGNOSIS: 1. Pressure ulcers of left ischial tuberosity and left greater trochanter POSTOPERATIVE DIAGNOSIS: 1. Pressure ulcers of left ischial tuberosity and left greater trochanter PROCEDURES PERFORMED: 1. Excisional debridement of left ischial tuberosity pressure ulcer including bone 10 x 7 cm. 2. Excisional debridement of left greater trochanter pressure ulcer including muscular fascia and tendon 10 x 6 cm. ANESTHESIA: General. INDICATIONS: The patient is a 56-year-old man with diabetes and diabetic neuropathy, status post bilateral amputations, who has developed pressure ulcers. SURGICAL TECHNIQUE: The patient was treated in the operating room. He underwent IV sedation and was positioned in the right lateral decubitus position. Both pressure ulcers could be accessed from this position. The initial attention was paid to the greater trochanter ulcer. This demonstrated evident palpable chunks of loose bone embedded in granulation tissue deep in the ulcer, which represented the ischial tuberosity, as well as medially palpable bone in this area. It was quite vascular and bled easily. A double action rongeur was used to remove all of the loose medially bone as well as loose bone fragments, and a number of these specimens were sent off for deep tissue culture. There was also some soft tissue in the area, which was necrotic still and was debrided using a combination of rongeur as well as forceps and scissors to excise this. Once this had been accomplished, the wound was packed with local anesthetic with epinephrine for hemostatic reasons. Attention was then turned to the greater trochanter wound. This did not have exposed bone, but did have exposed fascial and tenderness components in the depth of the wound, especially anteriorly where there was some undermining. This area was retracted using a [place] retractor and forceps and scissors were used to excise what appeared to be necrotic tensor fascia mikaela. Additionally, other segments of remaining fibrous yellow necrotic fascia were excised in a similar fashion until all necrotic material was adequately removed. The double action rongeur was also used to some advantage here. Following this, this area was also packed with local anesthetic and hemostasis was completed. At the conclusion of the procedure, a moistened Kerlix gauze was packed into the wounds, covered with absorbent gauze and the patient left in stable condition to continue his ongoing wound care on the balderas through the Wound Care speciality nurse.
[2017-01-19 03:29] VITALS: BP 165/72
[2017-01-19 07:08] VITALS: BP 134/65
[2017-01-19 10:26] VITALS: BP 138/73
[2017-01-19 14:29] VITALS: BP 141/59
[2017-01-19 18:23] VITALS: BP 154/67
[2017-01-20 00:07] VITALS: BP 145/73
[2017-01-20 04:01] VITALS: BP 140/60
[2017-01-20 07:19] VITALS: BP 134/69
[2017-01-20 14:31] VITALS: BP 176/77
[2017-01-20 18:17] VITALS: BP 165/74
[2017-01-20 22:58] VITALS: BP 164/77
[2017-01-21 02:08] VITALS: BP 180/80
[2017-01-21 03:23] VITALS: BP 162/76
[2017-01-21 06:27] VITALS: BP 147/66
[2017-01-21 14:31] VITALS: BP 129/64
[2017-01-21 18:44] VITALS: BP 160/73
[2017-01-21 22:39] VITALS: BP 146/62
[2017-01-22 02:14] VITALS: BP 170/74
[2017-01-22 06:30] VITALS: BP 156/74
--- NOTE | 2017-01-22 10:25 | Progress Note ---
Subjective General Edgard Quintanilla is generally feeling about the same. He has not had as much abdominal pain. He continues to have pain with dressing changes. He is breathing okay. He continues with supplemental oxygen. He is doing okay with eating most meals. His stool frequency has decreased. He continues to have difficulties with remembering what we have discussed regarding needs for long- term care. He continues to be anxious to go home. Eyes Conjunctival Inflammation, Eyelid Inflammation (right eye continues to be irri), Redness. Respiratory Other (somewhat shallow breathing.). Cardiovascular Denies: Chest Pain, Palpitations, PND, Edema. Gastrointestinal Diarrhea, Other (some mild right-sided abdomina). Genitourinary Other (continues with Hyatt catheter.). Musculoskeletal Shoulder Pain (ongoing shoulder pain when try). Skin Lesions (continues with large left hip ). Neurological Confusion (mild confusion at times). Physical Exam Vital Signs / I&Os Vital Signs Date Time Temp Pulse Resp B/P Pulse O2 O2 Flow FiO2 Ox Delivery Rate 01/22 0810 Nasal 1.5 Cannula 01/22 0630 97.9 72 19 156/74 90 Room Air 1.5 01/22 0214 98.4 74 17 170/74 93 Room Air 01/21 2312 Room Air 01/21 2239 98.1 80 17 146/62 100 Nasal 1.5 Cannula 01/21 1844 98.1 80 16 160/73 93 04/07 1431 97.7 74 16 129/64 92 I&O 01/21 0800 / 1600 08 0000 Intake Total 776 1128 200 Output Total 1500 850 Balance -724 278 200 General Appearance oriented 2. Not always certain of the date. Not in a distress. Generally cooperative. HEENT slight improvement drainage and crustiness around the right eyelid and eye. Left is okay. Lungs a few scattered rhonchi. Cardiovascular Regular rate and rhythm, Normal S1 and S2, 1/6 systolic murmur left sternal border. Abdomen Normal bowel sounds, Soft, slight tenderness in the right mid to lower abdominal area, also on admission. Extremities status post AKA's left and right Skin wound VAC is present in the left deep issue ulcer. Left deep hip ulcer continues to be active with dressing changes 4 times daily currently. Per nursing staff the deep parts of the wounds look good with clean erythematous surfaces. Neurological Normal speech, Normal tone, somewhat somnolent. LAB Results No new lab results from today. Patient refused blood draws this morning. Laboratory Tests 01/23 628 Toxicology Random Vancomycin (ug/mL) 19 Assessment and Plan Problem List 1. Pressure ulcer of left hip, stage 4 Plan Continue present dressing changes 4 times daily. May be able to decrease to twice daily if Dr. Guzman agrees. 2. Pressure ulcer of ischial area, stage 4 Plan Continue with wound VAC. Change as needed. 3. Diabetes type 2, uncontrolled Plan Blood sugars are generally in the 90-150 range. No low blood sugars. Continue current insulin doses with Lantus long-acting and sliding scale with NovoLog. 4. Hypertension Plan Blood pressures are currently running a little on the high side. Losartan was increased yesterday. We'll continue with this increase for another day or 2 before making any additional adjustments. Blood pressure elevations generally occur with pain at time of dressing changes. 5. Osteomyelitis, pelvis Plan Patient is currently on a regimen of cefepime and vancomycin. We'll continue this for the time being. May be able to stop the vancomycin and simply continue with cefepime. 6. COPD (chronic obstructive pulmonary disease) Plan Breathing is generally okay with low-dose supplemental oxygen being used. Patient continues with DuoNeb by nebulizer. We'll continue to encourage incentive spirometry. 7. Sepsis Plan Blood cultures grew out Proteus, Morganella morganii, and Peptostreptococcus. We'll continue with the cephapirin is primary antibiotic for this. These organisms are likely responsible for the osteomyelitis as well and the cephapirin will most likely need to be continued for 6 weeks minimum. E&M Codes Rounding: Inpt-Moderate/99066
[2017-01-22 14:56] VITALS: BP 144/68
[2017-01-22 23:07] VITALS: BP 172/68
[2017-01-23 07:23] VITALS: BP 171/78
[2017-01-23 14:23] VITALS: BP 157/72
--- NOTE | 2017-01-23 15:13 | Progress Note ---
Subjective General Mister Dwight continues with wound care and is doing okay with this. He has continued with the cephapirin antibiotic and has been switched to ampicillin to cover for strep. viridans and group D enterococcus Constitutional Weakness. Denies: Fever, Chills, Sweats. Eyes Other (irritation of right eye decrea). ENT Denies: Other (no significant mouth issues). Respiratory Denies: Other (breathing is improving.). Cardiovascular Denies: Chest Pain, Palpitations, Edema. Gastrointestinal Nausea, Abdominal Pain, Diarrhea (some nausea, pain decreased.), Other (loose stools controlled with l). Neurological Weakness, Confusion (some confusion at times, no landin). Physical Exam Vital Signs / I&Os Vital Signs Date Time Temp Pulse Resp B/P Pulse O2 O2 Flow FiO2 Ox Delivery Rate 01/23 1423 98.1 75 19 157/72 100 Nasal 3.0 Cannula 01/23 1030 2.0 01/23 0900 1.5 01/23 0723 98.1 75 19 171/78 99 Nasal 3.0 Cannula 01/22 2307 98.2 79 16 172/68 92 Room Air 01/22 2149 Room Air I&O 01/22 0800 01/22 1600 01/23 0000 Intake Total 1551 600 933 Output Total 1500 2475 830 Balance 51 -1875 103 General Appearance somnolent at times. Not exactly sure of date. Some forgetfulness with the to repeat instructions and information several times. HEENT slight crustiness of the right eye is improving. Lungs a few faint scattered rhonchi. Air movement is generally improving. No distinct wheezing noted. Cardiovascular heart sounds are distant. There is a grade 1/6 systolic murmur along left sternal border. There is no S3. Abdomen Normal bowel sounds, Soft, No tenderness, No guarding, abdomen is therapeutically tender. Bowel tones are okay. Extremities no problems with the lower leg AKA sites. Skin wound VAC is in place and continues to drain the issue ulcer. Moist to dry PACs are continued in the hip ulcer. Neurological somewhat slurred speech at times depending on administration of pain medication. LAB Results No new lab results. Assessment and Plan Problem List 1. Pressure ulcer of left hip, stage 4 Plan Continue moist to dry dressing changes 2-3 times daily. Continue sharp debridement as needed per Dr. Guzman. Wound management may be more than most nursing homes would be able to manage. Application has been transmitted to the insurance company to reconsider the [facility]. 2. Pressure ulcer of ischial area, stage 4 Plan Patient continues with the wound VAC. This is being changed when needed by the wound care nurse. Cephapirin and ampicillin. Long-term management would best be at [facility] until wounds are healed as most nursing homes would not be able to change the wound VAC on site. 3. Sepsis secondary to UTI Plan Patient continues with IV cephapirin and ampicillin. 4. COPD (chronic obstructive pulmonary disease) Plan Continue with DuoNeb treatments every 6 hours routinely. Continue to encourage deep breathing. 5. Osteomyelitis, pelvis Plan Continue with current antibiotic treatment with total duration of antibiotics at least 6 weeks. E&M Codes Rounding: Inpt-Moderate/29912
[2017-01-24 02:29] VITALS: BP 157/64
[2017-01-24 06:41] VITALS: BP 178/83
[2017-01-24 14:39] VITALS: BP 165/73
--- NOTE | 2017-01-24 20:39 | Progress Note ---
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 He is continuing with dressing changes for these. He is also seen in follow-up for problems of COPD, septicemia on initial presentation, osteoarthritis and involving the left pelvic ishium, and initial presentation with urinary tract infection. He is also seen for problems with hypertension and history of ASCVD and for follow-up of adult-onset diabetes insulin requiring. Overall he is gradually improving. He is somewhat discouraged that he can't go home. He does think he would benefit from transfer to the [facility] in [place] for further care. He is starting to realize that his is not able to care for him at home. He also certainly agrees that he would not receive the care he would need in a standard assisted. He has had very bad experiences in nursing homes in the past. He is also realizing that if he doesn't persist with the wound care treatments he will have severe infections recur and these will be fatal. Constitutional Weakness, Malaise. Denies: Chills, Sweats. Eyes Eyelid Inflammation (right eye irritation improving). Respiratory SOB w/exertion (some SOB with moving in bed). Denies: Wheezing, Hemoptysis, Sputum. Cardiovascular Denies: Chest Pain, Palpitations, Edema. Gastrointestinal Diarrhea (diarrhea has diminished.). Denies: Nausea, Vomiting, Abdominal Pain, Melena, Hematochezia. Genitourinary Other (Hyatt catheter is in place). Musculoskeletal Shoulder Pain, Arm Pain, Back Pain, Hand Pain. Skin Other (ulcers persist). Neurological Weakness, Other (occasional visual hallucinatio). Physical Exam Vital Signs / I&Os Vital Signs Date Time Temp Pulse Resp B/P Pulse O2 O2 Flow FiO2 Ox Delivery Rate 01/25 1944 1.0 01/24 1439 97.5 72 16 165/73 100 Nasal 3.0 Cannula 01/24 0829 3.0 01/24 0641 98.4 18 178/83 01/24 0232 3.0 01/24 0229 98.1 77 19 157/64 97 Nasal 2.0 Cannula 01/23 2030 Nasal 2.0 Cannula I&O 01/23 0800 01/23 1600 01/24 0000 Intake Total 6079 203 9854 Output Total 1475 0 1550 Balance -227 -1613 204 General Appearance alert but not always oriented to exact date. Significant short-term memory difficulties. Patient is trying his best to be cooperative though sometimes he is short tempered. HEENT slight irritation in Marita persistently right eye but this is generally improving with treatment with bacitracin. Lungs chest exam reveals good breath sounds with some faint scattered rhonchi with overall movement improving. Cardiovascular No murmurs, gallops, rubs, heart exam reveals S1 and S2 to be normal. There is a grade 1/6 systolic murmur left sternal border. Pelvic difficult to examine due to morbid obesity but no pronounced tenderness. There is a tendency for the skin in the right lower abdomen to be thickened with increased fluid due to patient's positioning more to the right side with that area of Skin being chronically dependent. Extremities some soreness of shoulders and elbows and wrists and hands( is the patient's primary mode of movement. Generally pain is controlled with current pain medication regimen. Skin deep L ishial ulcer Continues to be treated with moist to dry gauze packing changed at least every 12 hours and more frequently if stool soiling occurs. Deep areas the wound looked good. Left hip ulcer continues with wound VAC treatment. Neurological patient shows no significant change in neurologic status. He seems to be more alert actually and more interactive and general memory and comprehension of his condition seems to be slowly improving. He does have some memory difficulties related to prior strokes. Psych/Mental Status seems to be regarding some mild depression which may beappropriate to treat. He has not wanted treatment with antidepressants in the past. Assessment and Plan Problem List 1. Pressure ulcer of ischial area, stage 4 Plan This is gradually healing. Continue moist saline packing changed twice daily or more frequently if soiled with stool. 2. Pressure ulcer of left hip, stage 4 Plan Continue with current wound VAC treatment with changing once weekly or more frequently if the seal becomes loose. 3. Osteomyelitis, pelvis Plan Continue with cephapirin and amoxicillin intravenously. Continue for total duration of 6 weeks minimum. 4. Sepsis Plan This problem has resolved with the antibiotic treatment. 5. Diabetes Plan Continue current dose of Lantus insulin and sliding scale insulin. Blood sugars are generally okay in the low 100s. No symptomatic hypoglycemic spells. 6. COPD (chronic obstructive pulmonary disease) Plan Lung function is doing well with the current regimen of DuoNeb every 6 hours. This may be reduced to every 8 hours. 7. Hypertension Plan Blood pressures are still trending a little towards the hand. This may be due to pain issues involved with dressing changes and changes in position. Continue current regimen for now. We'll check electrolytes and renal function tests tomorrow. E&M Codes Rounding: Inpt-Moderate/35690
[2017-01-24 22:19] VITALS: BP 133/57
[2017-01-25 06:54] VITALS: BP 147/68
[2017-01-25 07:03] VITALS: BP 118/67
--- NOTE | 2017-01-25 08:30 | Progress Note ---
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 He has been approved to transfer to [facility] in [place] for ongoing treatment of deep ulcers on the left ischium and left hip areas. he has had some depression and was started on sertraline for this at 25 mg daily. He seems to be tolerating this. He also has had some ongoing heartburn issues and sucralfate was added and this has seemed to work okay. He is agreeable to the decision to transfer to the [facility] Constitutional Weakness. Denies: Fever, Chills. Eyes Other (slight drainage right eye). Respiratory SOB w/exertion, Other (continues supplemental O2 1-2). Denies: Wheezing, Sputum. Cardiovascular Denies: Chest Pain, PND, Edema. Gastrointestinal Abdominal Pain (mild abdominal discomfort at t). Denies: Nausea, Vomiting, Diarrhea (loose stools reduced). Genitourinary Other (Hyatt catheter in place). Musculoskeletal Shoulder Pain, Arm Pain, Back Pain. Skin Lesions (deep ulcers persist), Other (no new areas of skin breakdown). Neurological Other (mentation generally improved). Physical Exam Vital Signs / I&Os Vital Signs Date Time Temp Pulse Resp B/P Pulse O2 O2 Flow FiO2 Ox Delivery Rate 01/25 0810 1.0 01/25 0654 98.4 76 20 147/68 89 Room Air 1.0 01/24 2219 99.0 79 17 133/57 96 Nasal 1.0 Cannula 01/24 2100 Nasal 1.0 Cannula 01/24 1944 1.0 01/24 1439 97.5 72 16 165/73 100 Nasal 3.0 Cannula 01/24 0829 3.0 I&O 01/24 0800 01/24 1600 01/25 0000 Intake Total 765 804 3712 Output Total 825 1450 1600 Balance -705 -1210 -479 General Appearance generally alert and cooperative. Not sure of date. HEENT slight crustiness of the right thigh. Patient has refused the bacitracin ophthalmic ointment. Lungs lungs are basically clear with a few faint scattered rhonchi. No wheezes currently. Cardiovascular S1 and S2 are normal. Normal splitting of S2. Grade 1/6 systolic murmur. Abdomen grossly obese. No significant tenderness. Bowel tones active. Extremities no significant edema. Skin deep ulcers persist. Wound VAC has been removed from the left hip wound and this has been packed with gauze. Neurological Normal exam (patient), patient is alert with no significant changes in mentation. He occasionally has some episodes of mild confusion butThese have reduced. Psych/Mental Status somewhat depressed affect. Patient has started sertraline 25 mg daily. If no side effects felt this may need to be increased. LAB Results Laboratory Tests 01/25 0435 Chemistry Plasma Sodium (136 - 145 mmol/L) 144 Plasma Potassium (3.5 - 5.1 mmol/L) 4.2 Plasma Chloride (98 - 107 mmol/L) 108 CO2 (Enzymatic) (21 - 32 mmol/L) 30 BUN (7 - 18 mg/dL) 13 Creatinine (0.6 - 1.3 mg/dL) 1.1 Est GFR ( Amer) (mL/min) >60 Est GFR (Non-Af Amer) (mL/min) >60 Glucose (70 - 110 mg/dL) 115 Plasma Calcium (8.5 - 10.1 mg/dL) 7.3 Plasma Magnesium (1.8 - 2.4 mg/dL) 1.3 Hematology WBC (4.5 - 11.5 K/uL) 7.9 RBC (4.50 - 5.90 M/uL) 2.98 Hgb (13.5 - 17.5 gm/dL) 7.9 Hct (41.0 - 53.0 %) 24.6 MCV (80 - 100 fL) 83 MCH (26 - 34 pg) 27 RDW (11.6 - 14.8 %) 19.2 Neut % (Auto) (50 - 75 %) 50.7 Lymph % (Auto) (25 - 40 %) 30.1 [place] % (Auto) (3 - 14 %) 9.0 Eos % (Auto) (0 - 4 %) 9.4 Baso % (Auto) (0 - 2 %) 0.8 Plt Count, EDTA (150 - 400 K/uL) 195 PUBS MCHC (31 - 37 g/dL) 32 Assessment and Plan Problem List 1. Pressure ulcer of left hip, stage 4 Plan continue with moist to dry gauze packing twice daily or with wound VAC if this can be replaced. 2. Pressure ulcer of ischial area, stage 4 Plan continue with moist to dry gauze packing. Every 12 hours with additional changes if needed for soiling from stool of the packing. 3. Sepsis Plan patient is continuing with ampicillin currently to cover Proteus and enterococcus growing from current wounds. Sepsis has resolved. 4. Osteomyelitis, pelvis Plan patient is currently continuing with ampicillin intravenously 2 g every 4 hours to cover Proteus and enterococcus growing from the wounds. 5. Diabetes Plan blood sugars continue to be in the low 100s. Continue with current Lantus dose) sliding scale of insulin. 6. Hypertension Plan blood pressures continued to be in the 130s to 170 range with higher readings associated with dressing changes. Continue with current regimen. 7. COPD (chronic obstructive pulmonary disease) Plan current regimen of DuoNeb by nebulizer 3 times daily. 8. GE reflux Plan continue with pantoprazole 40 mg by mouth daily and with sucralfate before meals as needed to control heartburn. E&M Codes Discharge: Inpt >30 min spent/10648
--- NOTE | 2017-01-25 08:40 | Provider's Discharge Care Plan ---
Problem, Goal, Plan Problem List 1. Pressure ulcer of left hip, stage 4 Goals: Improve disease control, Improve function Instructions: patient is transferred to [facility]. Please see the dictated discharge summary for appropriate orders. This discharge program is too cumbersome to use for discharge orders of this nature.
--- NOTE | 2017-01-25 08:40 | Provider's Discharge Care Plan ---
Problem, Goal, Plan Problem List 1. Pressure ulcer of left hip, stage 4 Goals: Improve disease control, Improve function Instructions: patient is transferred to [facility]. Please see the dictated discharge summary for appropriate orders. This discharge program is too cumbersome to use for discharge orders of this nature.
--- NOTE | 2017-01-25 10:37 | DISCHARGE SUMMARY ---
ADMIT DATE: 01/06/2017 DISCHARGE DATE: 01/25/2017 ADMITTING DIAGNOSES: 1. Deep ulcers on the left ischial area and left hip area with neglected care at home 2. Probable sepsis 3. Urinary tract infection 4. Poorly controlled adult-onset diabetes DISCHARGE DIAGNOSES: 1. Deep ulcers on the left hip and on the left ischial/perineal area with both extending down to bone 2. Sepsis due to Morganella morganii, also proteus 3. Urinary tract infection due to proteus and Morganella morganii; also eventual wound cultures growing out Proteus mirabilis and group D enterococcus 4. Poorly controlled adult-onset diabetes with markedly improved control during hospitalization 5. Underlying chronic obstructive pulmonary disease 6. Chronic hypertension 7. Atherosclerotic cardiovascular disease 8. Chronic lumbar pain 9. Gastroesophageal reflux 10. 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 The patient was taken to surgery for initial deep debridements on 01/07/2017 , with extension of the ischial wound down to the bone and the hip wound also nearly to the bone 2. Second debridement was done 01/17/2017, with the ischial wound still extending down to the bone HOSPITAL COURSE: The patient was admitted to the hospital after a rather prolonged spell at home where he was neglecting his care and refusing to get out of his power wheelchair, and basically sitting in stool and urine for nearly a week. He finally got so ill that he agreed to come into the hospital. He was admitted, and his wounds were debrided. Cultures were done, and he grew out Proteus mirabilis Morganella morganii from urine and wounds and had blood cultures positive for these. He was initially treated with a combination of vancomycin and Zosyn. The Zosyn was changed to meropenem, as this was felt to be a much better choice. The patient did develop problems with hallucinations, and this was felt to be possibly due to meropenem, and the meropenem was changed to cefepime. After the initial wound debridements, the wounds were treated with moist packings with gauze, initially changed every 6 hours. The patient had quite a problem with diarrhea initially and loose stools, with considerable soiling of the ischial wound, and this required more frequent changing due to the loose stools. He had a stool check done for Clostridium difficile. This was negative. He was subsequently placed on loperamide tablets, and these have seemed to control his loose stools fairly well and enabled better care of the ischial wound. He had a second debridement done of the wounds, 01/17/2017. Cultures done at that point grew out enterococcus and proteus. These were both sensitive to ampicillin, and it was felt that this would be an appropriate choice of antibiotic at this point. Additionally, the left hip wound was treated with a wound VAC, changed whenever it would become loose. It has become loose on the day before transfer, and the left hip wound is simply packed with gauze, as is the ischial wound. Current changes are every 12 hours, with more frequent changes of the ischial wound if soiling occurs from stool. The patient's other medical issues have been controlled with adjustment of medications for blood pressure control, correction of electrolyte abnormalities as needed, Lantus insulin at 20 units daily with sliding scale insulin to control diabetes, and initiation of ipratropium/albuterol treatments for improving respiratory status. Additionally, he has been on pantoprazole 40 mg orally and sucralfate 1 g before meals as needed to control gastroesophageal reflux and heartburn. He has felt to have been becoming depressed, and Sertraline has been added to his regimen, which he is tolerating. It remains to be seen whether this is going to be helpful. He has been started on a low dose, and this dose may need to be increased. Please refer to the progress note from today, 01/25/2017, for current status. The patient generally is stable medically, with stable vital signs, stable respiratory status and controlled blood sugars. His magnesium level was low this morning, and he has been given 2 grams of magnesium intravenously prior to discharge. DISPOSITION: The patient will be discharged to [place], [place] to the care of Dr. Hernandez. DISCHARGE INSTRUCTIONS/MEDICATIONS: Current medications include ampicillin 2 g IV q.4 hours to treat wound infections. It is likely that this will need to be continued for several weeks. Antibiotic may need to be adjusted if the wounds seem to be growing out other organisms not responsive to the ampicillin. He continues with a nicotine patch 14 mg applied daily to prevent smoking. He continues with loperamide 4 mg dose before breakfast and before supper to control stools. He continues with clotrimazole cream applied to areas of the perineum and around the wounds that seem to be affected by yeast. Blood pressure medication regimen includes: losartan 50 mg b.i.d.; furosemide 20 mg q.a.m.; metoprolol 100 mg b.i.d.; and amlodipine 5 mg b.i.d. Treatment of gastroesophageal reflux includes pantoprazole 40 mg q.a.m. and sucralfate 1 g before meals as needed for complaints of heartburn. Diabetes control consists of Lantus insulin 20 units subcutaneous every a.m. and sliding scale with NovoLog insulin, medium dose. She the discharge notes for exact dosing. Chronic obstructive pulmonary disease is controlled with DuoNeb by nebulizer 3 mL q.6-8h. Chronic pain issues are controlled with methadone 2.5 mg routinely every 6 hours, and oxycodone 5 mg every 4 hours for breakthrough pain. He has additionally required hydromorphone administered before dressing changes, a dose of 1-2 mg IV. Usually he has responded to 1 mg. The patient also some irritation in his right eye. He has refused bacitracin ophthalmic ointment. It may be helpful to use an antibiotic eyedrop in place of the eye ointment. This has not been started yet. The patient's depression has been treated with sertraline 25 mg daily. This dose may need to be increased. Additionally, the patient is receiving lactobacillus 2 tablets 3 times daily to help maintain normal intestinal zaira. He has occasionally been needing ondansetron 4 mg IV for nausea, though his need for this has been minimal in the last several days. The patient is discharged and transferred by ambulance to [facility] for further ongoing care of the deep wounds and multiple medical problems. He and his were agreeable with this plan, and his insurance company has approved this.
== END 2017-01-25 15:15 | DRG 981 ==
LOC: ED SRH 13:14 → TRANS SRH 17:18 → CC SRH 18:20
PROVIDERS: Specialist; ADMIT Family Medicine
PROC: 0QB30ZZ Excision of Left Pelvic Bone, Open Approach (ICD-10-PCS; principal; 2017-01-07 12:00)
PROC: 0KBP0ZZ Excision of Left Hip Muscle, Open Approach (ICD-10-PCS; principal; 2017-01-07 12:00)
PROC: 0LBK0ZZ Excision of Left Hip Tendon, Open Approach (ICD-10-PCS; 2017-01-17)
PROC: 0QB30ZZ Excision of Left Pelvic Bone, Open Approach (ICD-10-PCS; 2017-01-17)
DX: T83.511A Infection and inflammatory reaction due to indwelling urethral catheter, initial encounter (principal); A41.59 Other Gram-negative sepsis; A41.4 Sepsis due to anaerobes; N30.00 Acute cystitis without hematuria; L89.224 Pressure ulcer of left hip, stage 4; L89.324 Pressure ulcer of left buttock, stage 4; Z91.19 Patient's noncompliance with other medical treatment and regimen; E11.69 Type 2 diabetes mellitus with other specified complication; M86.9 Osteomyelitis, unspecified; E11.51 Type 2 diabetes mellitus with diabetic peripheral angiopathy without gangrene; E11.42 Type 2 diabetes mellitus with diabetic polyneuropathy; Z79.4 Long term (current) use of insulin; E87.6 Hypokalemia; E66.01 Morbid (severe) obesity due to excess calories; Z68.44 Body mass index [BMI] 60.0-69.9, adult; Z89.612 Acquired absence of left leg above knee; Z89.611 Acquired absence of right leg above knee; I10 Essential (primary) hypertension; F17.210 Nicotine dependence, cigarettes, uncomplicated; I25.10 Atherosclerotic heart disease of native coronary artery without angina pectoris; J44.9 Chronic obstructive pulmonary disease, unspecified; K21.9 Gastro-esophageal reflux disease without esophagitis; Z86.73 Personal history of transient ischemic attack (TIA), and cerebral infarction without residual deficits; Z95.5 Presence of coronary angioplasty implant and graft; I25.2 Old myocardial infarction; Z99.3 Dependence on wheelchair
CPT/HCPCS: 50002; 60001; 81240; 81312; 83308; 83432; 83475; 83738; 83741; 83766; 83875; 83876; 84349; 85241; 90004; 90047; 90065; 90070; 90074; 90098; 90100; 90112; 90131; 90148; 90301; 90309; 90469; 90470; 91320; 91582; 91583; 91643; 91672; 92031; 92132; 92503; 92610; 92652; 92668; 92670; 92720; 92750; 93004; 95059